=== PATIENT | female | born 1955 | race Caucasian/White ===

== ENCOUNTER 2020-12-28 01:07 | Inpatient (IN) | payer MEDICARE, OTHER ==
[2020-12-28 03:52] VITALS: BMI 33.3
[2020-12-28] MEDS ORDERED: Acetaminophen 650 MG Suppository PR PRN (04:21)
[2020-12-28 05:30] LABS: Magnesium 2.2 mg/dL (1.6-2.6); Phosphorus 4.1 mg/dL (2.3-4.7)
[2020-12-28] MEDS ORDERED: Levothyroxine Sodium 100 MCG TAB PO SCH (06:00)
[2020-12-28] MEDS: Acetaminophen 325 MG TAB PO PRN ×2 (06:32→19:57)
[2020-12-28] MEDS ORDERED: Diltiazem 125 MG in Sodium Chloride 0.9% 100 ML IVPB SCH ×2 (07:00→08:39)
[2020-12-28] MEDS: Venlafaxine XR 37.5 MG CAP PO SCH (09:11)
[2020-12-28] MEDS: Enoxaparin Sodium 100 MG/ML SYRINGE SC SCH ×2 (09:11→19:56)
[2020-12-28 09:27] LABS: Troponin I 0.104 ng/mL (< 0.028)
[2020-12-28] MEDS ORDERED: Iopamidol-370 76% 500 ML 1 ML ONE (09:58)
[2020-12-28 13:15] LABS: Troponin I 0.075 ng/mL (< 0.028)
[2020-12-28] MEDS: Dronedarone HCl 400 MG TAB PO SCH (16:11)
[2020-12-29 05:34] LABS: #Eosinphils 0.2 thou/uL (0.0-0.7); #Lymphocytes 2.7 thou/uL (1.20-3.40); #Monocytes 0.6 thou/uL (0.11-0.59); #Neutrophils 3.9 thou/uL (1.40-6.50); %Basophils 0.6 % (0.0-1.0); %Eosinophils 2.3 % (0.0-10.0); %Lymphocytes 36.6 % (21.0-51.0); %Monocytes 8.3 % (0.0-10.0); %Neutrophils 52.2 % (42.0-75.0); Hemoglobin 13.3 g/dL (12.0-16.0); Mean Corpuscular Hemoglobin 31.6 pg (27.0-31.0); Mean Corpuscular Volume 95.9 fL (78.0-98.0); Mean Platelet Volume 8.9 fL (7.4-10.4); Platelet Count 246 thou/uL (130-400); RBC Distribution Width 12.4 % (11.5-14.5); Red Blood Cell (RBC) Count 4.22 mill/uL (4.20-5.40); White Blood Cell (WBC) Count 7.4 thou/uL (4.8-10.8)
[2020-12-29 06:02] LABS: ALT (SGPT) 13 U/L (8-55); AST (SGOT) 13 U/L (5-34); Albumin 3.1 g/dL (3.4-4.8); Alkaline Phosphatase 91 U/L (40-110); Anion Gap 12 mmol/L (10-20); BUN (Urea Nitrogen) 22 mg/dL (9.8-20.1); Bilirubin, Total 0.3 mg/dL (0.2-1.2); Calc. Creatinine Clearance 82 mL/min (70-130); Calcium 8.9 mg/dL (7.8-10.44); Carbon Dioxide 27 mmol/L (23-31); Chloride 106 mmol/L (98-107); Glucose 118 mg/dL (80-115); Potassium 4.8 mmol/L (3.5-5.1); Protein, Total 6.1 g/dL (5.8-8.1); Sodium 140 mmol/L (136-145)
[2020-12-29] MEDS: Levothyroxine Sodium 125 MCG TAB PO SCH (06:09)
[2020-12-29] MEDS: Enoxaparin Sodium 100 MG/ML SYRINGE SC SCH (08:36)
[2020-12-29] MEDS: Dronedarone HCl 400 MG TAB PO SCH ×2 (08:37→18:01)
[2020-12-29] MEDS: Venlafaxine XR 37.5 MG CAP PO SCH (08:37)
[2020-12-29] MEDS ORDERED: Regadenoson 0.4 MG/5 ML SYRINGE ONE (09:37)
[2020-12-29] MEDS: Apixaban 5 MG TAB PO SCH (20:17)
[2020-12-30] MEDS: Levothyroxine Sodium 125 MCG TAB PO SCH (04:59)
[2020-12-30] MEDS: Venlafaxine XR 37.5 MG CAP PO SCH (10:04)
[2020-12-30] MEDS: Dronedarone HCl 400 MG TAB PO SCH (10:04)
[2020-12-30] MEDS: Apixaban 5 MG TAB PO SCH (10:04)
[2020-12-30 12:01] VITALS: BP 134/81; TEMP 98.4
== END 2020-12-30 13:35 | disposition home or self-care (01) | DRG 309 ==
LOC: 2NO 01:07
PROVIDERS: ADMIT Student in an Organized Health Care Education/Training Program; ATTEND Student in an Organized Health Care Education/Training Program
DX: I48.91 Unspecified atrial fibrillation (principal); I24.8 Other forms of acute ischemic heart disease; Z20.822 Contact with and (suspected) exposure to COVID-19; E03.9 Hypothyroidism, unspecified; I35.1 Nonrheumatic aortic (valve) insufficiency; I34.1 Nonrheumatic mitral (valve) prolapse; Z90.710 Acquired absence of both cervix and uterus; Z98.890 Other specified postprocedural states; Z79.890 Hormone replacement therapy; Z79.899 Other long term (current) drug therapy; Z88.5 Allergy status to narcotic agent
CPT/HCPCS: 36415; 71275; 78452; 80053; 83735; 84100; 84443; 84484; 85025; 85379; 85520; 93005; 93010; 93017; 93306; A9500; J1650

== ENCOUNTER 2021-03-22 12:34 | Emergency (ER) | payer MEDICARE, OTHER ==
[2021-03-22 13:07] LABS: #Basophils 0.1 thou/uL (0.0-0.2); #Eosinphils 0.1 thou/uL (0.0-0.7); #Lymphocytes 2.1 thou/uL (1.20-3.40); #Monocytes 0.5 thou/uL (0.11-0.59); #Neutrophils 4.2 thou/uL (1.40-6.50); %Eosinophils 1.5 % (0.0-10.0); %Lymphocytes 30.5 % (21.0-51.0); %Monocytes 7.2 % (0.0-10.0); %Neutrophils 59.9 % (42.0-75.0); Hemoglobin 14.7 g/dL (12.0-16.0); Mean Corpuscular HGB CONC 33.6 g/dL (32.0-36.0); Mean Corpuscular Hemoglobin 32.3 pg (27.0-31.0); Mean Platelet Volume 9.4 fL (7.4-10.4); Platelet Count 238 thou/uL (130-400); RBC Distribution Width 11.9 % (11.5-14.5); Red Blood Cell (RBC) Count 4.57 mill/uL (4.20-5.40)
[2021-03-22 13:29] LABS: ALT (SGPT) 11 U/L (8-55); AST (SGOT) 11 U/L (5-34); Albumin 3.5 g/dL (3.4-4.8); Alkaline Phosphatase 82 U/L (40-110); Anion Gap 9 mmol/L (10-20); BUN (Urea Nitrogen) 15 mg/dL (9.8-20.1); Bilirubin, Total 0.5 mg/dL (0.2-1.2); Calc. Creatinine Clearance 0 mL/min (70-130); Calcium 9.5 mg/dL (7.8-10.44); Carbon Dioxide 28 mmol/L (23-31); Chloride 107 mmol/L (98-107); Globulin 3.3 g/dL (2.4-3.5); Glucose 100 mg/dL (80-115); Lipase 26 U/L (8-78); Potassium 4.1 mmol/L (3.5-5.1); Protein, Total 6.8 g/dL (5.8-8.1); Sodium 140 mmol/L (136-145)
[2021-03-22] MEDS ORDERED: Ketorolac Tromethamine 30 MG/ML VIAL ONE (15:34)
== END 2021-03-22 17:28 | disposition home or self-care (01) ==
LOC: ERS 12:34
DX: K57.92 Diverticulitis of intestine, part unspecified, without perforation or abscess without bleeding (principal); E03.9 Hypothyroidism, unspecified; Z79.01 Long term (current) use of anticoagulants; Z79.899 Other long term (current) drug therapy
CPT/HCPCS: 36415; 74176; 80053; 83690; 85025; 96372; J1885

== ENCOUNTER 2021-07-21 15:34 | Inpatient (IN) | payer MEDICARE ==
[2021-07-21 16:20] LABS: #Eosinphils 0.1 thou/uL (0.0-0.7); #Lymphocytes 1.7 thou/uL (1.20-3.40); #Monocytes 0.6 thou/uL (0.11-0.59); #Neutrophils 5.7 thou/uL (1.40-6.50); %Basophils 0.6 % (0.0-1.0); %Eosinophils 0.9 % (0.0-10.0); %Lymphocytes 20.9 % (21.0-51.0); %Monocytes 7.5 % (0.0-10.0); %Neutrophils 70.1 % (42.0-75.0); Hemoglobin 14.6 g/dL (12.0-16.0); Mean Corpuscular HGB CONC 33.1 g/dL (32.0-36.0); Mean Corpuscular Hemoglobin 31.4 pg (27.0-31.0); Mean Corpuscular Volume 94.8 fL (78.0-98.0); Mean Platelet Volume 8.4 fL (7.4-10.4); Platelet Count 278 thou/uL (130-400); RBC Distribution Width 12.7 % (11.5-14.5); Red Blood Cell (RBC) Count 4.65 mill/uL (4.20-5.40); White Blood Cell (WBC) Count 8.2 thou/uL (4.8-10.8)
[2021-07-21 16:43] LABS: ALT (SGPT) 11 U/L (8-55); AST (SGOT) 14 U/L (5-34); Albumin 3.7 g/dL (3.4-4.8); Alkaline Phosphatase 88 U/L (40-110); Anion Gap 10 mmol/L (10-20); BUN (Urea Nitrogen) 15 mg/dL (9.8-20.1); Bilirubin, Total 0.4 mg/dL (0.2-1.2); Calc. Creatinine Clearance 0 mL/min (70-130); Carbon Dioxide 26 mmol/L (23-31); Chloride 106 mmol/L (98-107); Globulin 3.5 g/dL (2.4-3.5); Glucose 117 mg/dL (80-115); Lipase 24 U/L (8-78); Potassium 4.2 mmol/L (3.5-5.1); Protein, Total 7.2 g/dL (5.8-8.1); Sodium 138 mmol/L (136-145)
[2021-07-21 17:01] LABS: Free T4 (Free Thyroxine) 0.86 ng/dL (0.70-1.48); Thyroid Stimulating Hormone 3.9407 uIU/mL (0.35-4.94)
[2021-07-21 17:04] LABS: CKMB 0.6 ng/mL (0-6.6)
[2021-07-21] MEDS ORDERED: Magnesium 2 GM/50 ML BAG (IN WATER) ONE (17:50)
[2021-07-21 20:45] VITALS: BMI 37.0
[2021-07-21] MEDS: Sodium Chloride 0.9% 1,000 ML IV SCH (22:17)
[2021-07-22 04:33] LABS: #Eosinphils 0.1 thou/uL (0.0-0.7); #Lymphocytes 2.8 thou/uL (1.20-3.40); #Monocytes 0.6 thou/uL (0.11-0.59); #Neutrophils 4.3 thou/uL (1.40-6.50); %Basophils 0.4 % (0.0-1.0); %Eosinophils 1.9 % (0.0-10.0); %Lymphocytes 35.6 % (21.0-51.0); %Monocytes 7.9 % (0.0-10.0); %Neutrophils 54.3 % (42.0-75.0); Hemoglobin 13.2 g/dL (12.0-16.0); Mean Corpuscular HGB CONC 33.7 g/dL (32.0-36.0); Mean Corpuscular Hemoglobin 32.3 pg (27.0-31.0); Mean Corpuscular Volume 95.7 fL (78.0-98.0); Mean Platelet Volume 8.7 fL (7.4-10.4); Platelet Count 239 thou/uL (130-400); RBC Distribution Width 12.7 % (11.5-14.5); White Blood Cell (WBC) Count 7.8 thou/uL (4.8-10.8)
[2021-07-22 04:52] LABS: Troponin I 0.093 ng/mL (< 0.028)
[2021-07-22 04:54] LABS: Anion Gap 11 mmol/L (10-20); BUN (Urea Nitrogen) 14 mg/dL (9.8-20.1); Calc. Creatinine Clearance 109 mL/min (70-130); Calcium 8.3 mg/dL (7.8-10.44); Carbon Dioxide 22 mmol/L (23-31); Chloride 108 mmol/L (98-107); Glucose 112 mg/dL (80-115); Magnesium 2.3 mg/dL (1.6-2.6); Potassium 3.9 mmol/L (3.5-5.1); Sodium 137 mmol/L (136-145)
[2021-07-22] MEDS: Sodium Chloride 0.9% 1,000 ML IV SCH (05:27)
[2021-07-22] MEDS: Levothyroxine Sodium 125 MCG TAB PO SCH (05:27)
[2021-07-22] MEDS ORDERED: Flecainide 50 MG TAB PO SCH (09:00)
[2021-07-22] MEDS ORDERED: Dronedarone HCl 400 MG TAB PO SCH (09:00)
[2021-07-22] MEDS: Amiodarone 450 MG in Dextrose 5% in Water 250 ML IVPB SCH ×2 (09:24→18:28)
[2021-07-22] MEDS: Venlafaxine XR 37.5 MG CAP PO SCH (09:26)
[2021-07-22] MEDS ORDERED: Metoprolol Tartrate 25 MG TAB PO SCH (11:30)
[2021-07-22 12:19] LABS: SARS-CoV-2 PCR by NAA Not Detected (NotDetected)
[2021-07-22] MEDS: Metoprolol Tartrate 25 MG TAB PO SCH (20:33)
[2021-07-22] MEDS: Rivaroxaban 10 MG TAB PO SCH (20:33)
[2021-07-23] MEDS: Amiodarone 450 MG in Dextrose 5% in Water 250 ML IVPB SCH (02:28)
[2021-07-23 04:15] LABS: #Basophils 0.1 thou/uL (0.0-0.2); #Eosinphils 0.2 thou/uL (0.0-0.7); #Lymphocytes 2.3 thou/uL (1.20-3.40); #Monocytes 0.8 thou/uL (0.11-0.59); #Neutrophils 6.3 thou/uL (1.40-6.50); %Basophils 0.6 % (0.0-1.0); %Eosinophils 1.9 % (0.0-10.0); %Lymphocytes 23.7 % (21.0-51.0); %Monocytes 7.9 % (0.0-10.0); %Neutrophils 65.8 % (42.0-75.0); Hemoglobin 13.5 g/dL (12.0-16.0); Mean Corpuscular HGB CONC 32.6 g/dL (32.0-36.0); Mean Corpuscular Hemoglobin 31.6 pg (27.0-31.0); Mean Corpuscular Volume 96.8 fL (78.0-98.0); Mean Platelet Volume 8.8 fL (7.4-10.4); Platelet Count 252 thou/uL (130-400); RBC Distribution Width 12.7 % (11.5-14.5); Red Blood Cell (RBC) Count 4.28 mill/uL (4.20-5.40); White Blood Cell (WBC) Count 9.5 thou/uL (4.8-10.8)
[2021-07-23 04:36] LABS: Anion Gap 11 mmol/L (10-20); BUN (Urea Nitrogen) 15 mg/dL (9.8-20.1); Calc. Creatinine Clearance 112 mL/min (70-130); Calcium 8.7 mg/dL (7.8-10.44); Carbon Dioxide 21 mmol/L (23-31); Chloride 107 mmol/L (98-107); Glucose 114 mg/dL (80-115); Potassium 4.4 mmol/L (3.5-5.1); Sodium 135 mmol/L (136-145)
[2021-07-23] MEDS: Levothyroxine Sodium 125 MCG TAB PO SCH (05:11)
[2021-07-23] MEDS: Metoprolol Tartrate 25 MG TAB PO SCH ×2 (09:02→20:57)
[2021-07-23] MEDS: Amiodarone 200 MG TAB PO SCH ×2 (09:02→20:57)
[2021-07-23] MEDS: Venlafaxine XR 37.5 MG CAP PO SCH (09:03)
[2021-07-23] MEDS ORDERED: HYDROcodone/Acetaminophen 5/325 mg Tablet PO PRN (13:48)
[2021-07-23] MEDS: Morphine 2 MG/ML VIAL SLOW IVP PRN ×2 (14:43→17:32)
[2021-07-23] MEDS ORDERED: Promethazine 25 MG TAB PO PRN (18:34)
[2021-07-23] MEDS: Rivaroxaban 10 MG TAB PO SCH (20:57)
[2021-07-24 04:35] LABS: #Eosinphils 0.1 thou/uL (0.0-0.7); #Lymphocytes 2.6 thou/uL (1.20-3.40); #Monocytes 0.8 thou/uL (0.11-0.59); #Neutrophils 5.8 thou/uL (1.40-6.50); %Basophils 0.1 % (0.0-1.0); %Eosinophils 1.1 % (0.0-10.0); %Lymphocytes 28.4 % (21.0-51.0); %Monocytes 8.2 % (0.0-10.0); %Neutrophils 62.2 % (42.0-75.0); Hemoglobin 13.9 g/dL (12.0-16.0); Mean Corpuscular HGB CONC 32.9 g/dL (32.0-36.0); Mean Corpuscular Hemoglobin 31.8 pg (27.0-31.0); Mean Corpuscular Volume 96.7 fL (78.0-98.0); Mean Platelet Volume 8.8 fL (7.4-10.4); Platelet Count 269 thou/uL (130-400); RBC Distribution Width 12.7 % (11.5-14.5); Red Blood Cell (RBC) Count 4.37 mill/uL (4.20-5.40); White Blood Cell (WBC) Count 9.3 thou/uL (4.8-10.8)
[2021-07-24 04:54] LABS: Anion Gap 12 mmol/L (10-20); BUN (Urea Nitrogen) 17 mg/dL (9.8-20.1); Calc. Creatinine Clearance 92 mL/min (70-130); Calcium 8.8 mg/dL (7.8-10.44); Carbon Dioxide 23 mmol/L (23-31); Chloride 105 mmol/L (98-107); Glucose 114 mg/dL (80-115); Potassium 4.2 mmol/L (3.5-5.1); Sodium 136 mmol/L (136-145)
[2021-07-24] MEDS: Levothyroxine Sodium 125 MCG TAB PO SCH (05:42)
[2021-07-24] MEDS: Amiodarone 200 MG TAB PO SCH ×2 (08:40→20:15)
[2021-07-24] MEDS: Venlafaxine XR 37.5 MG CAP PO SCH (08:41)
[2021-07-24] MEDS: Metoprolol Tartrate 25 MG TAB PO SCH ×2 (08:41→20:15)
[2021-07-24 12:36] LABS: Bilirubin Unable to Interpret (Negative); Clarity Hazy (Clear); Glucose, Urine (Dipstick) Unable to Interpret mg/dL (Negative); Ketone, Urine Unable to Interpret mg/dL (Negative); Leukocyte Unable to Interpret Leu/uL (Negative); Nitrite Unable to Interpret (Negative); Protein, Urine (Dipstick) Unable to Interpret mg/dL (Neg-Trace); Urobilinogen UNABLE TO INTERPRET mg/dL (Less than 2); pH, Urine 5.2 (5.0-9.0)
[2021-07-24 12:40] LABS: Blood, Urine Unable to Interpret (Negative); WBC/HPF Greater Than 50 HPF (0-3)
[2021-07-24 12:41] LABS: Bacteria/HPF 4+ HPF (None Seen)
[2021-07-24] MEDS: cefTRIAXone\\ROCEPHIN 1 GM in Sodium Chloride 0.9% 100 ML IVPB SCH (16:33)
[2021-07-24] MEDS: Rivaroxaban 10 MG TAB PO SCH (20:15)
[2021-07-25 04:30] LABS: #Eosinphils 0.2 thou/uL (0.0-0.7); #Lymphocytes 3.2 thou/uL (1.20-3.40); #Monocytes 0.6 thou/uL (0.11-0.59); #Neutrophils 4.3 thou/uL (1.40-6.50); %Basophils 0.5 % (0.0-1.0); %Eosinophils 2.5 % (0.0-10.0); %Lymphocytes 38.3 % (21.0-51.0); %Monocytes 7.3 % (0.0-10.0); %Neutrophils 51.5 % (42.0-75.0); Hemoglobin 13.9 g/dL (12.0-16.0); Mean Corpuscular HGB CONC 32.6 g/dL (32.0-36.0); Mean Corpuscular Hemoglobin 31.5 pg (27.0-31.0); Mean Corpuscular Volume 96.5 fL (78.0-98.0); Mean Platelet Volume 9.2 fL (7.4-10.4); Platelet Count 255 thou/uL (130-400); RBC Distribution Width 12.8 % (11.5-14.5); Red Blood Cell (RBC) Count 4.42 mill/uL (4.20-5.40); White Blood Cell (WBC) Count 8.2 thou/uL (4.8-10.8)
[2021-07-25 04:43] LABS: Anion Gap 12 mmol/L (10-20); BUN (Urea Nitrogen) 18 mg/dL (9.8-20.1); Calc. Creatinine Clearance 90 mL/min (70-130); Calcium 8.5 mg/dL (7.8-10.44); Carbon Dioxide 24 mmol/L (23-31); Chloride 105 mmol/L (98-107); Glucose 94 mg/dL (80-115); Potassium 4.1 mmol/L (3.5-5.1); Sodium 137 mmol/L (136-145)
[2021-07-25] MEDS: Levothyroxine Sodium 125 MCG TAB PO SCH (05:44)
[2021-07-25 07:12] LABS: Magnesium 2.2 mg/dL (1.6-2.6)
[2021-07-25] MEDS: Amiodarone 200 MG TAB PO SCH ×2 (08:15→21:28)
[2021-07-25] MEDS: Venlafaxine XR 37.5 MG CAP PO SCH (08:16)
[2021-07-25] MEDS: Metoprolol Tartrate 25 MG TAB PO SCH ×2 (08:17→21:28)
[2021-07-25] MEDS: cefTRIAXone\\ROCEPHIN 1 GM in Sodium Chloride 0.9% 100 ML IVPB SCH (16:16)
[2021-07-25] MEDS: Rivaroxaban 10 MG TAB PO SCH (21:27)
[2021-07-26 04:22] LABS: #Basophils 0.1 thou/uL (0.0-0.2); #Eosinphils 0.2 thou/uL (0.0-0.7); #Monocytes 0.7 thou/uL (0.11-0.59); #Neutrophils 3.4 thou/uL (1.40-6.50); %Basophils 0.7 % (0.0-1.0); %Eosinophils 2.6 % (0.0-10.0); %Lymphocytes 40.8 % (21.0-51.0); %Monocytes 9.5 % (0.0-10.0); %Neutrophils 46.4 % (42.0-75.0); Hemoglobin 13.9 g/dL (12.0-16.0); Mean Corpuscular HGB CONC 32.2 g/dL (32.0-36.0); Mean Corpuscular Hemoglobin 31.3 pg (27.0-31.0); Mean Platelet Volume 8.6 fL (7.4-10.4); Platelet Count 258 thou/uL (130-400); RBC Distribution Width 12.6 % (11.5-14.5); Red Blood Cell (RBC) Count 4.46 mill/uL (4.20-5.40); White Blood Cell (WBC) Count 7.3 thou/uL (4.8-10.8)
[2021-07-26 04:53] LABS: Anion Gap 11 mmol/L (10-20); BUN (Urea Nitrogen) 17 mg/dL (9.8-20.1); Calc. Creatinine Clearance 91 mL/min (70-130); Calcium 8.9 mg/dL (7.8-10.44); Carbon Dioxide 25 mmol/L (23-31); Chloride 108 mmol/L (98-107); Glucose 89 mg/dL (80-115); Magnesium 2.2 mg/dL (1.6-2.6); Potassium 4.2 mmol/L (3.5-5.1); Sodium 140 mmol/L (136-145)
[2021-07-26] MEDS: Levothyroxine Sodium 125 MCG TAB PO SCH (05:30)
[2021-07-26] MEDS: Metoprolol Tartrate 25 MG TAB PO SCH ×2 (10:01→20:57)
[2021-07-26] MEDS: Venlafaxine XR 37.5 MG CAP PO SCH (10:02)
[2021-07-26 10:46] LABS: ALT (SGPT) 10 U/L (8-55); AST (SGOT) 12 U/L (5-34); Albumin 3.3 g/dL (3.4-4.8); Alkaline Phosphatase 80 U/L (40-110); Bilirubin, Direct 0.1 mg/dL (0.1-0.3); Bilirubin, Total 0.4 mg/dL (0.2-1.2); Protein, Total 6.3 g/dL (5.8-8.1)
[2021-07-26] MEDS: Amiodarone 450 MG in Dextrose 5% in Water 250 ML IVPB SCH (14:34)
[2021-07-26] MEDS: cefTRIAXone\\ROCEPHIN 1 GM in Sodium Chloride 0.9% 100 ML IVPB SCH (16:26)
[2021-07-26] MEDS: Rivaroxaban 10 MG TAB PO SCH (20:56)
[2021-07-27] MEDS: Amiodarone 450 MG in Dextrose 5% in Water 250 ML IVPB SCH (00:54)
[2021-07-27 04:11] LABS: #Basophils 0.1 thou/uL (0.0-0.2); #Eosinphils 0.2 thou/uL (0.0-0.7); #Lymphocytes 3.2 thou/uL (1.20-3.40); #Monocytes 0.8 thou/uL (0.11-0.59); %Basophils 0.9 % (0.0-1.0); %Eosinophils 2.2 % (0.0-10.0); %Lymphocytes 34.7 % (21.0-51.0); %Monocytes 8.5 % (0.0-10.0); %Neutrophils 53.7 % (42.0-75.0); Hemoglobin 14.1 g/dL (12.0-16.0); Mean Corpuscular Volume 96.9 fL (78.0-98.0); Mean Platelet Volume 8.6 fL (7.4-10.4); Platelet Count 279 thou/uL (130-400); RBC Distribution Width 12.6 % (11.5-14.5); Red Blood Cell (RBC) Count 4.41 mill/uL (4.20-5.40); White Blood Cell (WBC) Count 9.3 thou/uL (4.8-10.8)
[2021-07-27 04:34] LABS: Anion Gap 10 mmol/L (10-20); BUN (Urea Nitrogen) 15 mg/dL (9.8-20.1); Calc. Creatinine Clearance 79 mL/min (70-130); Calcium 9.1 mg/dL (7.8-10.44); Carbon Dioxide 29 mmol/L (23-31); Chloride 105 mmol/L (98-107); Glucose 102 mg/dL (80-115); Magnesium 2.3 mg/dL (1.6-2.6); Potassium 4.9 mmol/L (3.5-5.1); Sodium 139 mmol/L (136-145)
[2021-07-27] MEDS: Levothyroxine Sodium 125 MCG TAB PO SCH (08:57)
[2021-07-27] MEDS: Venlafaxine XR 37.5 MG CAP PO SCH (09:29)
[2021-07-27] MEDS: Metoprolol Tartrate 25 MG TAB PO SCH ×2 (09:29→20:31)
[2021-07-27] MEDS: Cefdinir 300 MG CAP PO SCH ×2 (09:29→20:31)
[2021-07-27] MEDS ORDERED: PROPOFOL 200 MG/20 ML VIAL ONE (12:58)
[2021-07-27] MEDS: Amiodarone 200 MG TAB PO SCH (20:31)
[2021-07-27] MEDS: Rivaroxaban 10 MG TAB PO SCH (20:31)
[2021-07-28 04:32] LABS: #Eosinphils 0.2 thou/uL (0.0-0.7); #Lymphocytes 2.8 thou/uL (1.20-3.40); #Monocytes 0.8 thou/uL (0.11-0.59); #Neutrophils 4.8 thou/uL (1.40-6.50); %Basophils 0.4 % (0.0-1.0); %Eosinophils 1.8 % (0.0-10.0); %Lymphocytes 32.2 % (21.0-51.0); %Monocytes 9.6 % (0.0-10.0); Hemoglobin 13.6 g/dL (12.0-16.0); Mean Corpuscular HGB CONC 32.6 g/dL (32.0-36.0); Mean Corpuscular Hemoglobin 31.5 pg (27.0-31.0); Mean Corpuscular Volume 96.7 fL (78.0-98.0); Mean Platelet Volume 8.6 fL (7.4-10.4); Platelet Count 284 thou/uL (130-400); RBC Distribution Width 12.5 % (11.5-14.5); Red Blood Cell (RBC) Count 4.32 mill/uL (4.20-5.40); White Blood Cell (WBC) Count 8.6 thou/uL (4.8-10.8)
[2021-07-28 04:54] LABS: Anion Gap 10 mmol/L (10-20); BUN (Urea Nitrogen) 16 mg/dL (9.8-20.1); Calc. Creatinine Clearance 89 mL/min (70-130); Calcium 9.1 mg/dL (7.8-10.44); Carbon Dioxide 27 mmol/L (23-31); Chloride 104 mmol/L (98-107); Glucose 96 mg/dL (80-115); Magnesium 2.4 mg/dL (1.6-2.6); Potassium 3.8 mmol/L (3.5-5.1); Sodium 137 mmol/L (136-145)
[2021-07-28] MEDS: Levothyroxine Sodium 125 MCG TAB PO SCH (05:24)
[2021-07-28] MEDS: Cefdinir 300 MG CAP PO SCH (09:40)
[2021-07-28] MEDS: Amiodarone 200 MG TAB PO SCH (09:40)
[2021-07-28] MEDS: Metoprolol Tartrate 25 MG TAB PO SCH (09:41)
[2021-07-28] MEDS: Venlafaxine XR 37.5 MG CAP PO SCH (09:41)
[2021-07-28 11:57] VITALS: BP 111/55; TEMP 97.8
== END 2021-07-28 13:19 | disposition home or self-care (01) | DRG 281 ==
LOC: ERS 15:34 → 2NO 18:16
PROVIDERS: ADMIT Internal Medicine; ATTEND Internal Medicine
PROC: 5A2204Z Restoration of Cardiac Rhythm, Single (ICD-10-PCS; principal; 2021-07-27)
DX: I48.4 Atypical atrial flutter (principal); I21.A1 Myocardial infarction type 2; N39.0 Urinary tract infection, site not specified; Z16.11 Resistance to penicillins; N17.9 Acute kidney failure, unspecified; Z20.822 Contact with and (suspected) exposure to COVID-19; I48.91 Unspecified atrial fibrillation; E88.09 Other disorders of plasma-protein metabolism, not elsewhere classified; K57.30 Diverticulosis of large intestine without perforation or abscess without bleeding; B96.20 Unspecified Escherichia coli [E. coli] as the cause of diseases classified elsewhere; E03.9 Hypothyroidism, unspecified; I08.0 Rheumatic disorders of both mitral and aortic valves; Z88.6 Allergy status to analgesic agent; Z88.5 Allergy status to narcotic agent; Z90.11 Acquired absence of right breast and nipple; Z90.710 Acquired absence of both cervix and uterus; Z79.899 Other long term (current) drug therapy; Z79.890 Hormone replacement therapy; Z98.890 Other specified postprocedural states
CPT/HCPCS: 36415; 71045; 74176; 76770; 80048; 80053; 80076; 81001; 82553; 83690; 83735; 84439; 84443; 84484; 85025; 87077; 87086; 87186; 92960; 93005; 93010; 96365; J0282; J0696; J2270; J2704; J3475; J3490; J7050; J7070; Q0169; U0003; U0005

== ENCOUNTER 2021-08-19 14:36 | Observation (INO) | payer MEDICARE ==
[2021-08-19 15:22] LABS: #Eosinphils 0.1 thou/uL (0.0-0.7); #Lymphocytes 1.9 thou/uL (1.20-3.40); #Monocytes 0.3 thou/uL (0.11-0.59); #Neutrophils 3.9 thou/uL (1.40-6.50); %Basophils 0.5 % (0.0-1.0); %Eosinophils 1.6 % (0.0-10.0); %Lymphocytes 30.9 % (21.0-51.0); %Monocytes 5.4 % (0.0-10.0); %Neutrophils 61.7 % (42.0-75.0); Hemoglobin 14.2 g/dL (12.0-16.0); Mean Corpuscular HGB CONC 32.4 g/dL (32.0-36.0); Mean Corpuscular Hemoglobin 31.5 pg (27.0-31.0); Mean Corpuscular Volume 97.2 fL (78.0-98.0); Platelet Count 238 thou/uL (130-400); RBC Distribution Width 12.8 % (11.5-14.5); Red Blood Cell (RBC) Count 4.52 mill/uL (4.20-5.40); White Blood Cell (WBC) Count 6.3 thou/uL (4.8-10.8)
[2021-08-19 15:49] LABS: ALT (SGPT) 10 U/L (8-55); AST (SGOT) 16 U/L (5-34); Albumin 3.4 g/dL (3.4-4.8); Alkaline Phosphatase 74 U/L (40-110); Anion Gap 8 mmol/L (10-20); BUN (Urea Nitrogen) 21 mg/dL (9.8-20.1); Bilirubin, Total 0.4 mg/dL (0.2-1.2); Calc. Creatinine Clearance 0 mL/min (70-130); Calcium 8.9 mg/dL (7.8-10.44); Carbon Dioxide 31 mmol/L (23-31); Chloride 106 mmol/L (98-107); Globulin 3.6 g/dL (2.4-3.5); Glucose 109 mg/dL (80-115); Potassium 4.9 mmol/L (3.5-5.1); Sodium 140 mmol/L (136-145)
[2021-08-19] MEDS ORDERED: Bisacodyl 5 MG TAB PO PRN (17:07)
[2021-08-19] MEDS ORDERED: Senokot S 8.6-50 MG TAB PO PRN (17:07)
[2021-08-19] MEDS ORDERED: Ondansetron ODT 4 MG TAB PO PRN (17:07)
[2021-08-19 18:37] VITALS: BMI 36.5
[2021-08-19 18:38] LABS: Magnesium 2.3 mg/dL (1.6-2.6)
[2021-08-19] MEDS: Sodium Chloride 0.9% 1,000 ML IV SCH (20:13)
[2021-08-19] MEDS: Amiodarone 200 MG TAB PO SCH (20:14)
[2021-08-19] MEDS ORDERED: Venlafaxine XR 37.5 MG CAP PO SCH (21:00)
[2021-08-19] MEDS ORDERED: Rivaroxaban 10 MG TAB PO SCH (21:00)
[2021-08-20 00:20] LABS: SARS-CoV-2 PCR by NAA Not Detected (NotDetected)
[2021-08-20 05:48] LABS: #Eosinphils 0.1 thou/uL (0.0-0.7); #Lymphocytes 2.1 thou/uL (1.20-3.40); #Monocytes 0.5 thou/uL (0.11-0.59); #Neutrophils 3.6 thou/uL (1.40-6.50); %Basophils 0.7 % (0.0-1.0); %Eosinophils 2.2 % (0.0-10.0); %Lymphocytes 32.6 % (21.0-51.0); %Monocytes 7.6 % (0.0-10.0); %Neutrophils 56.9 % (42.0-75.0); Hemoglobin 13.5 g/dL (12.0-16.0); Mean Corpuscular HGB CONC 31.6 g/dL (32.0-36.0); Mean Corpuscular Hemoglobin 31.3 pg (27.0-31.0); Mean Corpuscular Volume 98.9 fL (78.0-98.0); Platelet Count 199 thou/uL (130-400); RBC Distribution Width 12.6 % (11.5-14.5); Red Blood Cell (RBC) Count 4.32 mill/uL (4.20-5.40); White Blood Cell (WBC) Count 6.4 thou/uL (4.8-10.8)
[2021-08-20] MEDS ORDERED: Levothyroxine Sodium 25 MCG TAB PO SCH (06:00)
[2021-08-20] MEDS ORDERED: Levothyroxine Sodium 100 MCG TAB PO SCH (06:00)
[2021-08-20] MEDS: Sodium Chloride 0.9% 1,000 ML IV SCH (06:01)
[2021-08-20 06:17] LABS: ALT (SGPT) 10 U/L (8-55); AST (SGOT) 10 U/L (5-34); Albumin 3.2 g/dL (3.4-4.8); Alkaline Phosphatase 64 U/L (40-110); Anion Gap 9 mmol/L (10-20); BUN (Urea Nitrogen) 17 mg/dL (9.8-20.1); Bilirubin, Total 0.4 mg/dL (0.2-1.2); Calc. Creatinine Clearance 90 mL/min (70-130); Calcium 8.6 mg/dL (7.8-10.44); Carbon Dioxide 29 mmol/L (23-31); Chloride 106 mmol/L (98-107); Globulin 2.9 g/dL (2.4-3.5); Glucose 114 mg/dL (80-115); Potassium 4.5 mmol/L (3.5-5.1); Protein, Total 6.1 g/dL (5.8-8.1); Sodium 139 mmol/L (136-145)
[2021-08-20] MEDS: Amiodarone 200 MG TAB PO SCH (07:58)
[2021-08-20] MEDS ORDERED: Venlafaxine XR 37.5 MG CAP PO SCH ×2 (09:00→21:00)
[2021-08-20] MEDS ORDERED: Non-Formulary Item 1 EACH (Levothyroxine Sodium [Levothyroxine] 125 MCG Capsule) PO SCH (09:00)
[2021-08-20] MEDS ORDERED: Lidocaine 1% PF 5 ML VIAL ONE (10:18)
[2021-08-20] MEDS ORDERED: PROPOFOL 200 MG/20 ML VIAL ONE (10:18)
[2021-08-20 16:39] VITALS: BP 133/75; TEMP 98.4
[2021-08-25 17:36] LABS: Lead-Whole Blood Less than 1 ug/dL (0-4)
== END 2021-08-20 17:45 | disposition home or self-care (01) ==
LOC: ERS 14:36 → 2SW 16:51
PROVIDERS: ADMIT Internal Medicine; ATTEND Internal Medicine
PROC: 5A2204Z Restoration of Cardiac Rhythm, Single (ICD-10-PCS; principal; 2021-08-19)
DX: I47.1 Supraventricular tachycardia (principal); I48.0 Paroxysmal atrial fibrillation; I48.4 Atypical atrial flutter; N17.9 Acute kidney failure, unspecified; E03.9 Hypothyroidism, unspecified; I44.0 Atrioventricular block, first degree; I49.3 Ventricular premature depolarization; I08.0 Rheumatic disorders of both mitral and aortic valves; Z79.01 Long term (current) use of anticoagulants; Z79.890 Hormone replacement therapy; Z79.899 Other long term (current) drug therapy; Z88.5 Allergy status to narcotic agent; Z20.822 Contact with and (suspected) exposure to COVID-19
CPT/HCPCS: 80053 ×2; 83655; 83735; 84484; 85025 ×2; 92960; 93005 ×2; 93306; 99285; G0378 ×3; U0003; U0005; 36415; 93010; J2704; J7050

== ENCOUNTER 2022-11-17 09:35 | Outpatient (CLI) | payer MEDICARE | END 2022-11-17 09:36 | disposition home or self-care (01) | LOC: BICMAMMO 09:35 | PROVIDERS: ATTEND Family Medicine | DX: N63.24 Unspecified lump in the left breast, lower inner quadrant (principal); N60.01 Solitary cyst of right breast; N64.89 Other specified disorders of breast | CPT/HCPCS: 76642 ×2; 77066; G0279 ==

== ENCOUNTER → 2022-11-25 | Day surgery (SDC) | payer MEDICARE | LOC: BICULT 11:46 | PROVIDERS: ATTEND Family Medicine | DX: C50.312 Malignant neoplasm of lower-inner quadrant of left female breast (principal); Z17.1 Estrogen receptor negative status [ER-]; R92.8 Other abnormal and inconclusive findings on diagnostic imaging of breast | CPT/HCPCS: 19083; 38505; 88305; 88341; 88342; 88361 ==

== ENCOUNTER 2022-12-09 05:36 | Day surgery (SDC) | payer MEDICARE ==
[2022-12-08 12:05] VITALS: BMI 31.0
[2022-12-09] MEDS ORDERED: Sodium Chloride 0.9% 100 ML ONE (06:24)
[2022-12-09] MEDS ORDERED: Lidocaine 1% MPF 2 ML VIAL ONE (06:24)
[2022-12-09] MEDS ORDERED: Acetaminophen 500 MG TAB ONE (06:24)
[2022-12-09] MEDS ORDERED: CEFAZOLIN 2 GM VIAL ONE (06:24)
[2022-12-09] MEDS ORDERED: Ketorolac Tromethamine 30 MG/ML VIAL ONE (06:25)
[2022-12-09] MEDS ORDERED: Bupivacaine 0.25% HCL 30 ML VIAL ONE (07:20)
[2022-12-09] MEDS ORDERED: EPINEPHrine 1 MG/ML AMP ONE (07:20)
[2022-12-09] MEDS ORDERED: Lidocaine 1% (PF) 30 ML VIAL ONE (07:20)
[2022-12-09] MEDS ORDERED: Lidocaine 1% PF 5 ML VIAL ONE (07:39)
[2022-12-09] MEDS ORDERED: Ondansetron PF 4 MG/2 ML Vial ONE (07:39)
[2022-12-09] MEDS ORDERED: PROPOFOL 200 MG/20 ML VIAL ONE (07:39)
[2022-12-09] MEDS ORDERED: hydrALAZINE 20 MG/ML VIAL ONE (08:54)
== END 2022-12-09 10:32 | disposition home or self-care (01) ==
LOC: SDC 05:36
PROVIDERS: ATTEND Specialist
PROC: 0JH60WZ Insertion of Totally Implantable Vascular Access Device into Chest Subcutaneous Tissue and Fascia, Open Approach (ICD-10-PCS; principal; 2022-12-09)
DX: D05.12 Intraductal carcinoma in situ of left breast (principal)
CPT/HCPCS: 36561; 71045; C1788; J0360; J0171; J1642; J1885; J2001; J2405; J2704; J3490; S0020

== ENCOUNTER 2022-12-14 11:00 | Outpatient (CLI) | payer MEDICARE | END 2022-12-14 11:01 | disposition home or self-care (01) | LOC: PET 11:00 | PROVIDERS: ATTEND Internal Medicine Hematology & Oncology | DX: C50.812 Malignant neoplasm of overlapping sites of left female breast (principal) | CPT/HCPCS: 78815; A9552 ==

== ENCOUNTER 2023-01-27 03:12 | Inpatient (IN) | payer MEDICARE ==
[2023-01-27 04:35] LABS: #Eosinphils 0.1 thou/uL (0.0-0.7); #Monocytes 0.4 thou/uL (0.11-0.59); #Neutrophils 2.9 thou/uL (1.40-6.50); %Basophils 0.9 % (0.0-1.0); %Eosinophils 1.1 % (0.0-10.0); %Lymphocytes 25.2 % (21.0-51.0); %Monocytes 7.9 % (0.0-10.0); %Neutrophils 64.5 % (42.0-75.0); Hematocrit 39.1 % (36.0-47.0); Hemoglobin 12.7 g/dL (12.0-16.0); Mean Corpuscular HGB CONC 32.5 g/dL (32.0-36.0); Mean Corpuscular Volume 95.4 fl (78.0-98.0); Mean Platelet Volume 11.3 fL (7.4-10.4); Platelet Count 195 10x3/uL (130-400); RBC Distribution Width 14.7 % (11.5-14.5); White Blood Cell (WBC) Count 4.5 10x3/uL (4.8-10.8)
[2023-01-27 04:56] LABS: ALT (SGPT) 182 U/L (8-55); AST (SGOT) 126 U/L (5-34); Albumin 3.4 g/dL (3.4-4.8); Alkaline Phosphatase 65 U/L (40-110); Anion Gap 14 mmol/L (10-20); BUN (Urea Nitrogen) 15 mg/dL (9.8-20.1); Bilirubin, Total 0.3 mg/dL (0.2-1.2); Calc. Creatinine Clearance 0 mL/min (70-130); Calcium 8.2 mg/dL (7.8-10.44); Carbon Dioxide 22 mmol/L (23-31); Chloride 109 mmol/L (98-107); Estimated GFR 71; Globulin 2.3 g/dL (2.4-3.5); Glucose 90 mg/dL (80-115); Magnesium 1.9 mg/dL (1.6-2.6); Potassium 4.6 mmol/L (3.5-5.1); Protein, Total 5.7 g/dL (5.8-8.1); Sodium 140 mmol/L (136-145)
[2023-01-27] MEDS ORDERED: Acetaminophen 325 MG TAB PO PRN (05:01)
[2023-01-27] MEDS ORDERED: Ondansetron ODT 4 MG TAB PO PRN (05:01)
[2023-01-27] MEDS ORDERED: Senokot S 8.6-50 MG TAB PO PRN (05:01)
[2023-01-27 05:06] LABS: Troponin I 0.047 ng/mL (< 0.028)
[2023-01-27 07:33] VITALS: BMI 30.6
[2023-01-27] MEDS ORDERED: Famotidine 20 MG TAB PO SCH (09:00)
[2023-01-27] MEDS ORDERED: Metoclopramide HCl 10 MG/2 ML VIAL IVP PRN (09:01)
[2023-01-27] MEDS: Metoprolol Tartrate 25 MG TAB PO SCH ×2 (09:29→20:13)
[2023-01-27] MEDS: Amiodarone 150 MG in Dextrose 5% in Water 100 ML IVPB SCH ×2 (10:11→14:59)
[2023-01-27] MEDS: Amiodarone 450 MG in Dextrose 5% in Water 250 ML IVPB SCH ×2 (10:12→17:04)
[2023-01-27] MEDS: Apixaban 5 MG TAB PO SCH (20:13)
[2023-01-27] MEDS: Venlafaxine HCl 37.5 MG TAB PO SCH (20:14)
[2023-01-28 04:37] LABS: #Basophils 0.1 thou/uL (0.0-0.2); #Eosinphils 0.1 thou/uL (0.0-0.7); #Monocytes 0.6 thou/uL (0.11-0.59); #Neutrophils 3.7 thou/uL (1.40-6.50); %Basophils 0.9 % (0.0-1.0); %Eosinophils 1.7 % (0.0-10.0); %Monocytes 10.7 % (0.0-10.0); %Neutrophils 63.2 % (42.0-75.0); Hematocrit 40.1 % (36.0-47.0); Hemoglobin 13.1 g/dL (12.0-16.0); Mean Corpuscular HGB CONC 32.7 g/dL (32.0-36.0); Mean Corpuscular Hemoglobin 31.2 pg (27.0-31.0); Mean Corpuscular Volume 95.5 fl (78.0-98.0); Mean Platelet Volume 10.6 fL (7.4-10.4); Platelet Count 201 10x3/uL (130-400); White Blood Cell (WBC) Count 5.8 10x3/uL (4.8-10.8)
[2023-01-28 05:02] LABS: ALT (SGPT) 250 U/L (8-55); AST (SGOT) 151 U/L (5-34); Albumin 3.6 g/dL (3.4-4.8); Alkaline Phosphatase 67 U/L (40-110); Bilirubin, Direct 0.1 mg/dL (0.1-0.3); Bilirubin, Total Less than 0.2 mg/dL (0.2-1.2); Protein, Total 6.2 g/dL (5.8-8.1)
[2023-01-28 05:03] LABS: Anion Gap 11 mmol/L (10-20); BUN (Urea Nitrogen) 12 mg/dL (9.8-20.1); Calc. Creatinine Clearance 87 mL/min (70-130); Carbon Dioxide 25 mmol/L (23-31); Chloride 105 mmol/L (98-107); Estimated GFR 73; Glucose 110 mg/dL (80-115); Potassium 4.1 mmol/L (3.5-5.1); Sodium 137 mmol/L (136-145)
[2023-01-28] MEDS: Levothyroxine Sodium 100 MCG TAB PO SCH (06:36)
[2023-01-28] MEDS: Metoprolol Tartrate 25 MG TAB PO SCH ×2 (08:35→19:55)
[2023-01-28] MEDS: Venlafaxine HCl 37.5 MG TAB PO SCH ×2 (08:35→19:55)
[2023-01-28] MEDS: Apixaban 5 MG TAB PO SCH ×2 (08:35→19:54)
[2023-01-28] MEDS ORDERED: Digoxin 0.5 MG/2 ML AMP SLOW IVP SCH (19:15)
[2023-01-28] MEDS ORDERED: Sodium Chloride 0.9% 500 ML IVPB SCH (19:15)
[2023-01-28] MEDS ORDERED: dilTIAZem 125 MG in Sodium Chloride 0.9% 100 ML IVPB SCH (19:30)
[2023-01-28] MEDS: Amiodarone 450 MG in Dextrose 5% in Water 250 ML IVPB SCH (20:54)
[2023-01-29] MEDS: Levothyroxine Sodium 100 MCG TAB PO SCH (05:36)
[2023-01-29] MEDS: Metoprolol Tartrate 25 MG TAB PO SCH ×2 (08:27→21:46)
[2023-01-29] MEDS: Venlafaxine HCl 37.5 MG TAB PO SCH ×2 (08:27→21:46)
[2023-01-29] MEDS: Apixaban 5 MG TAB PO SCH ×2 (08:27→21:46)
[2023-01-29 08:51] LABS: Anion Gap 13 mmol/L (10-20); BUN (Urea Nitrogen) 7 mg/dL (9.8-20.1); Calc. Creatinine Clearance 92 mL/min (70-130); Calcium 8.7 mg/dL (7.8-10.44); Carbon Dioxide 23 mmol/L (23-31); Chloride 106 mmol/L (98-107); Estimated GFR 78; Glucose 117 mg/dL (80-115); Sodium 138 mmol/L (136-145)
[2023-01-29] MEDS: Amiodarone 450 MG in Dextrose 5% in Water 250 ML IVPB SCH ×2 (11:11→17:56)
[2023-01-29] MEDS: Hydrocortisone 1% Cream 30 GM TUBE TOP SCH (21:46)
[2023-01-30] MEDS: Amiodarone 450 MG in Dextrose 5% in Water 250 ML IVPB SCH ×2 (01:46→09:43)
[2023-01-30] MEDS: Hydrocortisone 1% Cream 30 GM TUBE TOP SCH ×2 (01:48→09:22)
[2023-01-30] MEDS: Levothyroxine Sodium 100 MCG TAB PO SCH (05:21)
[2023-01-30 06:05] LABS: Anion Gap 13 mmol/L (10-20); BUN (Urea Nitrogen) 12 mg/dL (9.8-20.1); Calc. Creatinine Clearance 92 mL/min (70-130); Calcium 8.7 mg/dL (7.8-10.44); Carbon Dioxide 23 mmol/L (23-31); Chloride 106 mmol/L (98-107); Estimated GFR 78; Glucose 114 mg/dL (80-115); Sodium 138 mmol/L (136-145)
[2023-01-30] MEDS: Apixaban 5 MG TAB PO SCH ×2 (09:22→20:38)
[2023-01-30] MEDS: Venlafaxine HCl 37.5 MG TAB PO SCH ×2 (09:22→20:38)
[2023-01-30] MEDS: Metoprolol Tartrate 25 MG TAB PO SCH ×2 (09:53→20:38)
[2023-01-30] MEDS ORDERED: Amiodarone 450 MG in Dextrose 5% in Water 250 ML IVPB SCH (11:45)
[2023-01-30] MEDS ORDERED: PROPOFOL 200 MG/20 ML VIAL ONE (14:14)
[2023-01-30] MEDS ORDERED: Lidocaine 1% PF 5 ML VIAL ONE (14:14)
[2023-01-30] MEDS ORDERED: diphenhydrAMINE 25 MG CAP PO PRN (20:22)
[2023-01-30] MEDS ORDERED: Amiodarone 200 MG TAB PO SCH (21:00)
[2023-01-31] MEDS: Levothyroxine Sodium 100 MCG TAB PO SCH (06:02)
[2023-01-31 06:05] LABS: ALT (SGPT) 276 U/L (8-55); AST (SGOT) 135 U/L (5-34); Albumin 3.1 g/dL (3.4-4.8); Alkaline Phosphatase 70 U/L (40-110); Anion Gap 11 mmol/L (10-20); BUN (Urea Nitrogen) 13 mg/dL (9.8-20.1); Bilirubin, Total 0.2 mg/dL (0.2-1.2); Calc. Creatinine Clearance 86 mL/min (70-130); Calcium 8.4 mg/dL (7.8-10.44); Carbon Dioxide 24 mmol/L (23-31); Chloride 106 mmol/L (98-107); Estimated GFR 72; Globulin 2.5 g/dL (2.4-3.5); Glucose 114 mg/dL (80-115); Potassium 3.9 mmol/L (3.5-5.1); Protein, Total 5.6 g/dL (5.8-8.1); Sodium 137 mmol/L (136-145)
[2023-01-31] MEDS ORDERED: Dronedarone HCl 400 MG TAB PO SCH (08:00)
[2023-01-31] MEDS: Apixaban 5 MG TAB PO SCH (08:54)
[2023-01-31] MEDS: Metoprolol Tartrate 25 MG TAB PO SCH (08:54)
[2023-01-31] MEDS: Venlafaxine HCl 37.5 MG TAB PO SCH (08:54)
[2023-01-31] MEDS: Hydrocortisone 1% Cream 30 GM TUBE TOP SCH (08:55)
[2023-01-31 11:23] VITALS: BP 126/59; TEMP 98.5
== END 2023-01-31 15:15 | disposition home or self-care (01) | DRG 309 ==
LOC: ERS 03:12 → 2SW 06:11 → OBSVTOIN 01-29 15:17
PROVIDERS: ADMIT Student in an Organized Health Care Education/Training Program; ATTEND Internal Medicine
PROC: 5A2204Z Restoration of Cardiac Rhythm, Single (ICD-10-PCS; principal; 2023-01-30)
DX: I48.19 Other persistent atrial fibrillation (principal); C79.89 Secondary malignant neoplasm of other specified sites; I48.92 Unspecified atrial flutter; E03.9 Hypothyroidism, unspecified; F39 Unspecified mood [affective] disorder; I35.1 Nonrheumatic aortic (valve) insufficiency; C50.919 Malignant neoplasm of unspecified site of unspecified female breast; R79.89 Other specified abnormal findings of blood chemistry; Z88.5 Allergy status to narcotic agent; Z88.8 Allergy status to other drugs, medicaments and biological substances; Z79.890 Hormone replacement therapy; Z90.710 Acquired absence of both cervix and uterus
CPT/HCPCS: 36415; 36416; 76705; 80048; 80053; 80076; 83735; 84443; 84484; 85025; 92960; 93005; 93010; 93312; 96374; 96375; 96376; G0378; J0282; J1160; J2704; J7030; J7070

== ENCOUNTER 2023-03-26 05:22 | Inpatient (IN) | payer MEDICARE ==
[2023-03-26] MEDS ORDERED: Amiodarone 150 MG/3 ML VIAL ONE (05:55)
[2023-03-26 06:21] LABS: #Neutrophils 4.3 thou/uL (1.40-6.50); %Basophils 0.3 % (0.0-1.0); %Eosinophils 0.1 % (0.0-10.0); %Lymphocytes 21.6 % (21.0-51.0); %Monocytes 14.1 % (0.0-10.0); %Neutrophils 60.8 % (42.0-75.0); Hematocrit 36.8 % (36.0-47.0); Hemoglobin 11.7 g/dL (12.0-16.0); Mean Corpuscular HGB CONC 31.8 g/dL (32.0-36.0); Mean Corpuscular Hemoglobin 32.8 pg (27.0-31.0); Mean Corpuscular Volume 103.1 fl (78.0-98.0); Mean Platelet Volume 10.4 fL (7.4-10.4); Platelet Count 154 10x3/uL (130-400); RBC Distribution Width 18.1 % (11.5-14.5); Red Blood Cell (RBC) Count 3.57 mill/uL (4.20-5.40); White Blood Cell (WBC) Count 7.1 10x3/uL (4.8-10.8)
[2023-03-26 06:31] LABS: INR-International Normal Ratio 0.9
[2023-03-26 06:46] LABS: Lipase 23 U/L (8-78)
[2023-03-26 06:50] LABS: Troponin I 0.017 ng/mL (< 0.028)
[2023-03-26] MEDS ORDERED: Enoxaparin 40 MG (0.4 mL) SYRINGE SC SCH ×2 (08:15→09:00)
[2023-03-26 08:48] LABS: SARS-CoV-2 NAA Rapid Test Not Detected (NotDetected)
[2023-03-26] MEDS ORDERED: Metoprolol Tartrate 25 MG TAB PO SCH (09:00)
[2023-03-26] MEDS ORDERED: Non-Formulary Item 1 EACH (Levothyroxine Sodium [Levothyroxine Sodium] 100 MCG Capsule) PO SCH (09:00)
[2023-03-26 11:16] LABS: Troponin I 0.131 ng/mL (< 0.028)
[2023-03-26] MEDS ORDERED: Iopamidol 370 76% 100 ML VIAL ONE (11:20)
[2023-03-26] MEDS: Venlafaxine XR 37.5 MG CAP PO SCH (11:24)
[2023-03-26] MEDS: Amiodarone 450 MG, Admixture Fee 1 EACH in Dextrose 5% in Water 250 ML IVPB SCH (15:14)
[2023-03-26 15:26] VITALS: BMI 31.4
[2023-03-26] MEDS: Acetaminophen 325 MG TAB PO PRN (17:10)
[2023-03-26] MEDS: Dronedarone HCl 400 MG TAB PO SCH (17:10)
[2023-03-26] MEDS: traMADol HCl 50 MG TAB PO PRN (18:31)
[2023-03-26 19:22] LABS: Critical Call Chem Troponin I NUR.SM20 @1922; Troponin I 0.214 ng/mL (< 0.028)
[2023-03-26] MEDS: Apixaban 5 MG TAB PO SCH (21:22)
[2023-03-27] MEDS: traMADol HCl 50 MG TAB PO PRN ×2 (00:31→07:35)
[2023-03-27] MEDS ORDERED: Ketorolac Tromethamine 30 MG (1 mL) VIAL IVP SCH (02:00)
[2023-03-27 04:40] LABS: #Monocytes 0.8 thou/uL (0.11-0.59); #Neutrophils 3.2 thou/uL (1.40-6.50); %Basophils 0.6 % (0.0-1.0); %Eosinophils 0.3 % (0.0-10.0); %Lymphocytes 35.7 % (21.0-51.0); %Monocytes 12.6 % (0.0-10.0); %Neutrophils 48.8 % (42.0-75.0); Hemoglobin 11.4 g/dL (12.0-16.0); Mean Corpuscular HGB CONC 31.7 g/dL (32.0-36.0); Mean Corpuscular Hemoglobin 32.2 pg (27.0-31.0); Mean Corpuscular Volume 101.7 fl (78.0-98.0); Mean Platelet Volume 10.1 fL (7.4-10.4); Platelet Count 141 10x3/uL (130-400); RBC Distribution Width 18.1 % (11.5-14.5); Red Blood Cell (RBC) Count 3.54 mill/uL (4.20-5.40); White Blood Cell (WBC) Count 6.5 10x3/uL (4.8-10.8)
[2023-03-27 05:09] LABS: Anion Gap 11 mmol/L (10-20); BUN (Urea Nitrogen) 10 mg/dL (9.8-20.1); Calc. Creatinine Clearance 103 mL/min (70-130); Calcium 8.2 mg/dL (7.8-10.44); Carbon Dioxide 24 mmol/L (23-31); Chloride 106 mmol/L (98-107); Estimated GFR 87; Glucose 92 mg/dL (80-115); Potassium 3.9 mmol/L (3.5-5.1); Sodium 137 mmol/L (136-145)
[2023-03-27] MEDS: Levothyroxine 150 MCG TAB PO SCH (05:19)
[2023-03-27] MEDS: Acetaminophen 325 MG TAB PO PRN (06:27)
[2023-03-27] MEDS: Amiodarone 450 MG, Admixture Fee 1 EACH in Dextrose 5% in Water 250 ML IVPB SCH ×2 (06:28→21:49)
[2023-03-27 06:45] LABS: Bilirubin Negative (Negative); Blood, Urine Negative (Negative); Clarity Clear (Clear); Glucose, Urine (Dipstick) Normal (Negative); Ketone, Urine Negative (Negative); Leukocyte Negative Leu/uL (Negative); Nitrite Negative (Negative); Protein, Urine (Dipstick) Negative (Neg-Trace); RBC/HPF 0-3 HPF (0-3); Specific Gravity, Urine 1.009 (1.002-1.036); Squamous Epithelial 0-3 HPF (0-3); Urobilinogen Normal mg/dL (Less than 2); WBC/HPF 0-3 HPF (0-3)
[2023-03-27 06:47] LABS: Bacteria/HPF 1+ HPF (None Seen)
[2023-03-27] MEDS: Dronedarone HCl 400 MG TAB PO SCH (09:18)
[2023-03-27] MEDS: Ondansetron PF 4 MG/2 ML Vial IVP PRN ×2 (09:18→20:38)
[2023-03-27] MEDS: Venlafaxine XR 37.5 MG CAP PO SCH (09:19)
[2023-03-27] MEDS: Apixaban 5 MG TAB PO SCH ×2 (09:19→21:24)
[2023-03-27] MEDS: predniSONE 5 MG TAB PO SCH (09:19)
[2023-03-27] MEDS ORDERED: Ketorolac Tromethamine 30 MG (1 mL) VIAL IVP PRN (11:29)
[2023-03-27] MEDS ORDERED: Morphine 4 MG/ML VIAL SLOW IVP PRN (13:34)
[2023-03-27] MEDS ORDERED: Polyethylene Glycol 3350 17 GM Packet PO PRN (13:44)
[2023-03-27] MEDS ORDERED: Ondansetron PF 4 MG/2 ML Vial IVP SCH (14:30)
[2023-03-27] MEDS ORDERED: Metoprolol Tartrate 5 MG (5 mL) VIAL IVP SCH (16:00)
[2023-03-27] MEDS ORDERED: Ondansetron ODT 4 MG TAB PO PRN (20:19)
[2023-03-27] MEDS: Docusate 100 MG CAP PO SCH (21:25)
[2023-03-28] MEDS: Levothyroxine 150 MCG TAB PO SCH (05:11)
[2023-03-28] MEDS: Docusate 100 MG CAP PO SCH ×2 (09:23→20:31)
[2023-03-28] MEDS: Apixaban 5 MG TAB PO SCH ×2 (09:23→20:31)
[2023-03-28] MEDS: Venlafaxine XR 37.5 MG CAP PO SCH (09:23)
[2023-03-28] MEDS: predniSONE 5 MG TAB PO SCH (09:24)
[2023-03-28] MEDS: Amiodarone 450 MG, Admixture Fee 1 EACH in Dextrose 5% in Water 250 ML IVPB SCH (14:20)
[2023-03-28] MEDS ORDERED: Metoprolol Tartrate 5 MG (5 mL) VIAL IVP SCH (19:30)
[2023-03-29] MEDS: Amiodarone 450 MG, Admixture Fee 1 EACH in Dextrose 5% in Water 250 ML IVPB SCH (04:57)
[2023-03-29] MEDS ORDERED: PROPOFOL 200 MG/20 ML VIAL ONE (08:02)
[2023-03-29] MEDS ORDERED: Amiodarone 200 MG TAB PO SCH (09:00)
[2023-03-29] MEDS: Ondansetron PF 4 MG/2 ML Vial IVP PRN (09:56)
[2023-03-29] MEDS: Venlafaxine XR 37.5 MG CAP PO SCH (11:55)
[2023-03-29] MEDS: Apixaban 5 MG TAB PO SCH (11:55)
[2023-03-29] MEDS: predniSONE 5 MG TAB PO SCH (11:56)
[2023-03-29] MEDS: Levothyroxine 150 MCG TAB PO SCH (11:56)
[2023-03-29] MEDS: Acetaminophen 325 MG TAB PO PRN (11:57)
[2023-03-29] MEDS: Docusate 100 MG CAP PO SCH (12:19)
[2023-03-29 12:39] LABS: #Monocytes 0.9 thou/uL (0.11-0.59); #Neutrophils 5.8 thou/uL (1.40-6.50); %Basophils 0.3 % (0.0-1.0); %Eosinophils 0.3 % (0.0-10.0); %Lymphocytes 23.6 % (21.0-51.0); %Monocytes 10.4 % (0.0-10.0); %Neutrophils 64.4 % (42.0-75.0); Hematocrit 38.8 % (36.0-47.0); Hemoglobin 12.4 g/dL (12.0-16.0); Mean Corpuscular Hemoglobin 32.9 pg (27.0-31.0); Mean Corpuscular Volume 102.9 fl (78.0-98.0); Platelet Count 168 10x3/uL (130-400); RBC Distribution Width 18.1 % (11.5-14.5); Red Blood Cell (RBC) Count 3.77 mill/uL (4.20-5.40)
[2023-03-29 13:06] LABS: Anion Gap 10 mmol/L (10-20); BUN (Urea Nitrogen) 11 mg/dL (9.8-20.1); Calc. Creatinine Clearance 85 mL/min (70-130); Calcium 8.6 mg/dL (7.8-10.44); Carbon Dioxide 27 mmol/L (23-31); Chloride 106 mmol/L (98-107); Estimated GFR 69; Glucose 116 mg/dL (80-115); Potassium 3.9 mmol/L (3.5-5.1); Sodium 139 mmol/L (136-145)
[2023-03-29] MEDS: traMADol HCl 50 MG TAB PO PRN (14:54)
[2023-03-29 15:57] VITALS: BP 135/83; TEMP 98.2
[2023-04-01] MEDS ORDERED: predniSONE 5 MG TAB PO SCH (09:00)
== END 2023-03-29 17:55 | disposition home or self-care (01) | DRG 309 ==
LOC: ERS 05:22 → ERHOLD 07:46 → 2SW 07:56
PROVIDERS: ADMIT Family Medicine; ATTEND Internal Medicine
PROC: 5A2204Z Restoration of Cardiac Rhythm, Single (ICD-10-PCS; principal; 2023-03-29)
DX: I48.92 Unspecified atrial flutter (principal); C79.89 Secondary malignant neoplasm of other specified sites; N39.0 Urinary tract infection, site not specified; I48.0 Paroxysmal atrial fibrillation; R68.84 Jaw pain; C50.919 Malignant neoplasm of unspecified site of unspecified female breast; E03.9 Hypothyroidism, unspecified; F39 Unspecified mood [affective] disorder; I08.0 Rheumatic disorders of both mitral and aortic valves; M54.50 Low back pain, unspecified; M16.11 Unilateral primary osteoarthritis, right hip; N32.89 Other specified disorders of bladder; Z88.5 Allergy status to narcotic agent; Z79.890 Hormone replacement therapy; Z79.899 Other long term (current) drug therapy; Z92.21 Personal history of antineoplastic chemotherapy; Z90.710 Acquired absence of both cervix and uterus; Z11.52 Encounter for screening for COVID-19
CPT/HCPCS: 0241U; 36415; 71045; 71275; 72148; 72195; 80048; 81001; 83605; 83690; 83735; 83880; 84443; 84484; 85025; 85610; 85730; 92960; 93005; 93010; J0282; J1885; J2270; J2405; J2704; J7070; J7512; Q0162; Q9967

== ENCOUNTER 2023-06-02 | Observation (INO) | payer MEDICARE | END 2023-06-03 11:14 | disposition home or self-care (01) | PROVIDERS: ADMIT Specialist | PROC: 0HBV0ZZ Excision of Bilateral Breast, Open Approach (ICD-10-PCS; principal; 2023-06-02) | PROC: 07B60ZZ Excision of Left Axillary Lymphatic, Open Approach (ICD-10-PCS; 2023-06-02) | DX: C50.312 Malignant neoplasm of lower-inner quadrant of left female breast (principal); C50.911 Malignant neoplasm of unspecified site of right female breast; Z92.21 Personal history of antineoplastic chemotherapy; Z98.82 Breast implant status; E03.9 Hypothyroidism, unspecified; E66.9 Obesity, unspecified; I34.1 Nonrheumatic mitral (valve) prolapse; Z79.01 Long term (current) use of anticoagulants; Z90.710 Acquired absence of both cervix and uterus; Z98.890 Other specified postprocedural states; Z79.899 Other long term (current) drug therapy; Z79.890 Hormone replacement therapy; Z88.5 Allergy status to narcotic agent ==

== ENCOUNTER 2023-09-11 07:56 | Day surgery (SDC) | payer MEDICARE ==
[2023-09-08 09:08] VITALS: BMI 28.0
[~2023-09-11 07:56] MED LIST: Dexamethasone 20 MG/5 ML VIAL ONE; Lidocaine 1% PF 5 ML VIAL ONE; Ondansetron PF 4 MG/2 ML Vial ONE; PROPOFOL 200 MG/20 ML VIAL ONE; ePHEDrine Sulfate 50 MG/10 ML VIAL ONE
[2023-09-11 08:06] LABS: #Basophils 0.05 10x3/uL (0.0-0.2); %Basophils 0.8 % (0.0-1.0); %Eosinophils 1.2 % (0.0-10.0); %Lymphocytes 39.7 % (21.0-51.0); %Neutrophils 47.1 % (42.0-75.0); Anion Gap 14 mmol/L (10-20); BUN (Urea Nitrogen) 24 mg/dL (9.8-20.1); Calc. Creatinine Clearance 85 mL/min (70-130); Calcium 8.9 mg/dL (7.8-10.44); Carbon Dioxide 21 mmol/L (23-31); Chloride 110 mmol/L (98-107); Estimated GFR 79; Glucose 97 mg/dL (80-115); Hematocrit 39.8 % (36.0-47.0); Hemoglobin 12.8 g/dL (12.0-16.0); Mean Corpuscular HGB CONC 32.2 g/dL (32.0-36.0); Mean Corpuscular Hemoglobin 30.3 pg (27.0-31.0); Mean Corpuscular Volume 94.3 fL (78.0-98.0); Mean Platelet Volume 11.3 fL (7.4-10.4); Platelet Count 197 10x3/uL (130-400); RBC Distribution Width 13.1 % (11.5-14.5); Red Blood Cell (RBC) Count 4.22 mill/uL (4.20-5.40); Sodium 141 mmol/L (136-145)
[2023-09-11] MEDS ORDERED: fentaNYL 50 mcg/mL 1 mL Vial ONE ×3 (10:39→11:33)
== END 2023-09-11 16:02 | disposition home or self-care (01) ==
LOC: SDC 07:56
PROVIDERS: ATTEND Plastic Surgery
PROC: 0HRV0JZ Replacement of Bilateral Breast with Synthetic Substitute, Open Approach (ICD-10-PCS; principal; 2023-09-11)
DX: C50.312 Malignant neoplasm of lower-inner quadrant of left female breast (principal); N64.1 Fat necrosis of breast; N61.23 Granulomatous mastitis, bilateral breast; G47.33 Obstructive sleep apnea (adult) (pediatric); K21.9 Gastro-esophageal reflux disease without esophagitis; R50.9 Fever, unspecified; E07.9 Disorder of thyroid, unspecified; Z90.710 Acquired absence of both cervix and uterus; Z98.890 Other specified postprocedural states; Z79.899 Other long term (current) drug therapy; Z79.01 Long term (current) use of anticoagulants
CPT/HCPCS: 15771; 19120; 19342; 80048; 85025; J1100; J2405; J2704; J3010; 88305